=== PATIENT | male | born 2000 | race Caucasian/White ===

== ENCOUNTER 2021-02-03 18:21 | Emergency (ER) | payer OTHER ==
[~2021-02-03] VITALS: Ht 160 cm; Wt 50.8 kg
[2021-02-03 18:30] VITALS: BP 134/88
[2021-02-03] MEDS ORDERED: CEPH500C2 PO (18:50)
[2021-02-03] MEDS ORDERED: IBUP-1955 PO (18:50)
[2021-02-03] MEDS ORDERED: TDAP [DIPH/PERTUSSIS/TET] 0.5 ML VIAL IM ONE ×2 (18:56→19:00)
[2021-02-03] MEDS ORDERED: CEPHALEXIN MONOHYDRATE 500 MG CAPSULE PO ONE ×2 (18:56→19:00)
[2021-02-03] MEDS ORDERED: IBUPROFEN 600 MG TABLET ONE (18:56)
[2021-02-03] MEDS ORDERED: IBUPROFEN 600 MG TABLET PO ONE (19:00)
--- NOTE | 2021-02-03 19:06 | NUR ---
Patient discharged to home in stable condition. Written and verbal after care instructions given. Patient verbalizes understanding of instruction.
== END 2021-02-03 19:06 | disposition home or self-care (01) ==
LOC: ER 18:26
DX: S90.822A Blister (nonthermal), left foot, initial encounter (principal); Z79.899 Other long term (current) drug therapy; X58.XXXA Exposure to other specified factors, initial encounter; Y93.89 Activity, other specified; Y92.89 Other specified places as the place of occurrence of the external cause; Y99.8 Other external cause status
CPT/HCPCS: 90715

== ENCOUNTER 2022-11-17 03:24 | Emergency (ER) | payer OTHER ==
[~2022-11-17] VITALS: Ht 177.8 cm; Wt 55.8 kg
[~2022-11-17 03:24] MED LIST: CEPH500C2 PO; IBUP-1955 PO
[2022-11-17] MEDS ORDERED: ONDANSETRON 4 MG TAB.RAPDIS SL ONE (03:30)
[2022-11-17 03:31] VITALS: BP 131/81
[2022-11-17] MEDS ORDERED: ONDANSETRON 4 MG TAB.RAPDIS ONE (03:33)
--- NOTE | 2022-11-17 03:35 | NUR ---
c/o "feeling nausea after doing some meth" . Patient is AAOX4. Able to make needs known. Positioned comfortably. Vitals checked.
--- NOTE | 2022-11-17 03:36 | NUR ---
Medication given SL
== END 2022-11-17 05:39 | disposition home or self-care (01) ==
LOC: ER 03:27
DX: F15.90 Other stimulant use, unspecified, uncomplicated (principal); Z79.899 Other long term (current) drug therapy
CPT/HCPCS: 99283; Q0162